=== PATIENT | male | born 1955 | race Caucasian/White ===

== ENCOUNTER → 2022-08-15 10:39 | Outpatient (CLI) | payer MEDICARE, OTHER, SELFPAY ==
--- NOTE | 2022-08-15 10:59 | XR_ITS ---
FINAL REPORT CLINICAL HISTORY: Chronic cough, dysphagia, former smoker FINDINGS: 2 views of the chest were obtained . No prior exam available for comparison. The heart is normal in size. The mediastinum is within normal limits. The lungs are clear. There is no pneumothorax. Osseous structures are unremarkable. IMPRESSION: No acute cardiopulmonary process. Reviewed, Interpreted and Dictated by Stella Murcia MD Transcribed by Maegan Barrios Authenticated and [facility]
== END ==
PROVIDERS: Visit Provider Specialist
DX: G47.30 Sleep apnea, unspecified (principal); R05.3 Chronic cough; R13.10 Dysphagia, unspecified; Z87.891 Personal history of nicotine dependence
CPT/HCPCS: 71046; 94762

== ENCOUNTER → 2022-08-23 11:59 | Outpatient (CLI) | payer MEDICARE, OTHER, SELFPAY ==
--- NOTE | 2022-08-23 11:59 | FL_ITS ---
FINAL REPORT CLINICAL HISTORY: dysphagia, chronic cough, ft 1:43 FINDINGS: MODIFIED BARIUM SWALLOW History: Dysphagia FINDINGS: Fluoroscopy was provided for the speech pathologist to evaluate the swallowing mechanism. The patient was given several different consistencies of barium while the swallow was visualized fluoroscopically. The report of the speech pathologist should be consulted prior to making dietary decisions. FLUOROSCOPY TIME: 1 minute 43 seconds IMPRESSION: Modified barium swallow under fluoroscopic guidance. Please see the report of the speech pathologist for Dietary recommendations. Films reviewed , interpreted and dictated by Dr. Cohen Transcribed by Horacio Rossi PA-C. Reviewed, Interpreted and Dictated by Armin Cohen III, MD Transcribed by GLEN Ramírez Authenticated and [facility]
--- NOTE | 2022-08-23 14:31 | HMH.SLMBS2 ---
Speech & Language Evaluation Speech/Language Mod Barium Swallow Start: 08/23/22 14:06 Freq: once Status: Complete Protocol: Document 08/23/22 14:06 KAIN (Rec: 08/23/22 14:31 KAIN [id number]) General Information General Current Food Consistancy Regular,Thin Liquids Dentition Edentulous Oxygen Status Room Air Facial Symmetry Symmetrical Patient Orientation Person,Place,Time,Situation Ability to Follow Directions Excellent Communication Ability No Impairment MBS Recommendations Diet Dietary Recommendations Regular,Thin Liquids Treatment/Strategies Strategy/Precaution Recommend Sitting Upright (90 deg) Referrals/Other Recommended Referrals GI Consult Mod Barium Swallow Impressions Summary and Impressions Oral Phase Impression No Impairment (WFL) Oral Phase Summary Oral phase is WFL. Adequate mastication of solids, timely AP transit, and adequate bolus control were all noted. No premature spillage was seen on the study and there was no significant oral residue. Pharyngeal Phase Impression No Impairment (WFL) Pharyngeal Phase Summary Pharyngeal phase is WFL. No aspiration or penetration was noted on the study. No significant oral residue present. Adequate pharyngeal squeeze and hyolaryngeal movement. Adequate BOT retraction. Pt did cough during the study and reported material sticking but this was not consistent with pharyngeal residue or aspiration. Speech/Language MBS Assessment/Goals/Plan Assessment Date of Evaluation: 08/23/22 Evaluation Type Initial Certification Assessment/Problems Dysphagia per MD order. Does Patient Qualify for Service No Qualify/Failure Comment Per MBSS, swallow function is WFL. No further skilled speech therapy services are warranted at this time. Recommendations PHYSICIAN CERTIFICATION: The specified therapy services are required, authorized, and reviewed every 30 days. Diet Recommendations Normal Liquid Type Recommendations Normal/Thin Dysphagia Swallow Precautions/Strategies Sitting Upright (90 deg),Small Bites and Sips,Alternate Liquids/Solids Plan
== END ==
PROVIDERS: Visit Provider Specialist
DX: R05.3 Chronic cough (principal); R13.10 Dysphagia, unspecified
CPT/HCPCS: 70371; 92611